=== PATIENT | male | born 1960 | race Caucasian/White ===

== ENCOUNTER → 2017-04-04 17:45 | Outpatient (REF) | payer BC, SELFPAY ==
[2017-04-04 18:52] LABS: Prostate Specific Ag, Diagnost 2.61 ng/mL (0.0-4.0)
== END ==
LOC: LAB 17:45
PROVIDERS: Visit Provider Internal Medicine
DX: R39.12 Poor urinary stream (principal)
CPT/HCPCS: 84153

== ENCOUNTER → 2017-05-15 10:49 | Outpatient (CLI) | payer BC, SELFPAY | PROVIDERS: PCP Internal Medicine; Visit Provider Internal Medicine | DX: J11.1 Influenza due to unidentified influenza virus with other respiratory manifestations (principal) | CPT/HCPCS: 87275; 87276 ==

== ENCOUNTER → 2017-09-07 15:24 | Outpatient (CLI) | payer BC, SELFPAY ==
--- NOTE | 2017-09-07 15:30 | XR_ITS ---
XR knee RT 3V Ordering Physician: Domingo Griffiths Patient Age: 56 years: Male HISTORY: ITS.REASON: RT KNEE PAIN Right knee pain no trauma TECHNIQUE: 3 view right knee COMPARISON :08/05/2016 right knee FINDINGS . No fracture. No new findings No definite effusion at suprapatellar bursa. Bones well mineralized. Borderline joint space narrowing particularly at medial compartment on this nonweightbearing film. IMPRESSION: No acute findings right knee.. No significant change since prior study. Only Question Borderline narrowing of the joint space particularly at medial compartment on this nonweightbearing film. This may reflect some early degenerative changes.
== END ==
PROVIDERS: PCP Internal Medicine; Visit Provider Internal Medicine
DX: M25.561 Pain in right knee (principal)
CPT/HCPCS: 73562

== ENCOUNTER 2017-10-17 17:00 | Outpatient (RCR) | payer BC, SELFPAY | END 2017-10-17 17:01 | disposition home or self-care (01) | LOC: PT 17:00 | PROVIDERS: Family Provider Internal Medicine; PCP Internal Medicine; Visit Provider Orthopaedic Surgery | DX: M17.11 Unilateral primary osteoarthritis, right knee (principal) | CPT/HCPCS: 97033; 97110; 97140; 97163 ==

== ENCOUNTER → 2019-04-19 09:25 | Outpatient (CLI) | payer BC, SELFPAY ==
[2019-04-19 09:48] LABS: Basophils # 0.1 K/mm3 (0-0.2); Basophils % 1.1 % (0.1-2.0); Eosinophils # 0.4 K/mm3 (0.0-0.4); Eosinophils % 4.3 % (0.1-12.0); Hematocrit 47.1 % (42.0-52.0); Lymphocytes # 2.6 K/mm3 (0.7-4.5); Lymphocytes % 27.4 % (10-50); Mean Corpuscular Hemoglobin 32.3 pg (27.0-31.2); Mean Corpuscular Volume 95.2 fl (80-94); Mean Platelet Volume 7.5 fl (7.4-10.4); Monocytes # 0.6 K/mm3 (0.1-1.0); Monocytes % 6.5 % (1.7-9.3); Neutrophils # 5.7 K/mm3 (1.8-7.8); Neutrophils % 60.7 % (37.0-80.0); Platelet Count 291 K/mm3 (142-424); Red Blood Count 4.95 M/mm3 (4.60-6.20); Red Cell Distribution Width 12.4 % (11.5-17.5); White Blood Count 9.3 K/mm3 (4.8-10.8)
[2019-04-19 11:52] LABS: Alanine Aminotransferase 32 U/L (12-78); Albumin Level 3.9 gm/dL (3.4-5.0); Albumin/Globulin Ratio 1.4 (1.1-1.8); Alkaline Phosphatase 69 U/L (46-116); Anion Gap 13.5 mEq/L (5-15); Aspartate Amino Transferase 13 U/L (15-37); Bilirubin,Total 0.5 mg/dL (0.2-1.0); Blood Urea Nitrogen 15 mg/dL (7-18); Carbon Dioxide 27 mmol/L (21.0-32.0); Chloride 103 mmol/L (98-107); Chol/HDL Ratio 3.4 (1-3.5); Cholesterol 131 mg/dL (140-200); Creatinine,Serum 1.12 mg/dL (0.70-1.30); Estimated Glomerular Filt Rate 68 ml/min (>60); GFR (African American) 82 ML/MIN (>60); Globulin 2.8 gm/dl (1.3-3.2); Glucose 87 mg/dL (74-106); HDL Cholesterol 38 mg/dL (27-67); LDL Cholesterol 79 mg/dL (0-130); Potassium 4.5 mmoL/L (3.5-5.1); Sodium 139 mmol/L (136-145); Total Protein,Serum 6.7 gm/dL (6.4-8.2); Triglycerides 69 mg/dL (30-200); VLDL Cholesterol 14 mg/dL (0-40)
== END ==
PROVIDERS: Visit Provider Internal Medicine
DX: I10 Essential (primary) hypertension (principal); E78.5 Hyperlipidemia, unspecified; N40.0 Benign prostatic hyperplasia without lower urinary tract symptoms; M17.0 Bilateral primary osteoarthritis of knee
CPT/HCPCS: 36415; 80053; 80061; 84153; 85025

== ENCOUNTER → 2019-05-05 07:58 | Outpatient (POV) | payer BC, SELFPAY | PROVIDERS: Visit Provider Specialist | DX: R20.0 Anesthesia of skin (principal); R20.2 Paresthesia of skin; M79.642 Pain in left hand; M79.641 Pain in right hand | CPT/HCPCS: 95886; 95910 ==

== ENCOUNTER → 2019-05-28 16:34 | Outpatient (CLI) | payer BC, SELFPAY ==
--- NOTE | 2019-05-28 16:41 | XR_ITS ---
PROCEDURE: XR WRIST LT MIN 3V CLINICAL INDICATION: left wrist pain/ CTS COMPARISON: No exams were available for comparison FINDINGS: No fracture, dislocation, lytic change, or blastic change evident. No significant degenerative change IMPRESSION: Negative left wrist Dictated by: Aren Robledo MD 05/28/2019 17:04 Electronically signed by Aren Robledo MD in [place] 05/28/2019 17:04
--- NOTE | 2019-05-28 16:41 | XR_ITS ---
PROCEDURE: XR WRIST RT MIN 3V CLINICAL INDICATION: RT wrist pain/ CTS COMPARISON: No exams were available for comparison FINDINGS: No fracture, dislocation, lytic change, or blastic change evident. No significant degenerative change IMPRESSION: Negative right wrist Dictated by: Aren Robledo MD 05/28/2019 17:03 Electronically signed by Aren Robledo MD in [place] 05/28/2019 17:03
--- NOTE | 2019-05-28 16:42 | XR_ITS ---
PROCEDURE: XR CHEST 2V CLINICAL HISTORY: HTN COMPARISON: CXR CHEST(2 VIEWS-NOT PORTABLE) from 10/05/2014 FINDINGS: There are low lung volumes. Unremarkable cardiovascular structures with clear lungs. The lungs are clear without infiltrates, suspicious nodules, or pleural effusions. No acute bony abnormalities. IMPRESSION: No acute findings. Dictated by: Aren Robledo MD 05/28/2019 17:01 Electronically signed by Aren Robledo MD in [place] 05/28/2019 17:01
== END ==
PROVIDERS: PCP Internal Medicine; Visit Provider Orthopaedic Surgery
DX: G56.02 Carpal tunnel syndrome, left upper limb (principal); G56.01 Carpal tunnel syndrome, right upper limb
CPT/HCPCS: 71046; 73110

== ENCOUNTER 2019-06-02 16:00 | Outpatient (RCR) | payer BC, SELFPAY ==
--- NOTE | 2019-05-19 16:33 | HMH.PTOPEV ---
PT Outpatient Evaluation Rehab PT Outpatient Evaluation Start: 05/19/19 15:42 Freq: Status: Active Protocol: Document 05/19/19 15:43 GERMANIALEILANI (Rec: 05/19/19 16:33 GARRET [id number]) Electronically Signed By Justin Leon, CHELY 05/19/19 15:43 Outpatient Therapy Subjective History Subjective History This is the initial Physical Therapy evaluation for Jules Dotson. Pt is a 58 y/o male referred to PT for c/o B hand L>R numbness. Pt reports weakness and numbness in B hands, no sig c/o pain. Pt reports this has been going on for years but substantial increased around March. Pt states that in March they went through shut down and had increased workload. Chief Complaint Paresthesia,Weakness Symptom Type Numbness,Tingling Symptoms Relieved By Shaking Symptoms Aggravated By Physical Activity Prior Functional Limitations None Symptom Description Intermittent Wrist/Hand Eval Flexibility Deficits Wrist Extensors Muscle Length (R) Mild Tightness,(L) Mild Tightness Wrist Flexors Muscle Length (R) Mild Tightness,(L) Mild Tightness Supinator Muscle Length (R) Mild Tightness,(L) Mild Tightness Wrist Range of Motion Right Wrist Limitations of Range of Motion Soft Tissue Tightness Wrist Extension Active Range of Motion ( 50 degrees) Wrist Flexion Active Range of Motion ( 80 degrees) Left Wrist Limitations of Range of Motion Soft Tissue Tightness Wrist Extension Active Range of Motion ( 60 degrees) Wrist Flexion Active Range of Motion ( 80 degrees) Duplication Specialist/Pinch Strength Left Duplication Specialist Strength Measurement (lbs) 100 Right Duplication Specialist Strength Measurement (lbs) 100 Outpatient Therapy Assessment Impairments Problems/Impairmments Impaired Range of Motion, Impaired Strength,Impaired Lifting,Impaired Work Activities,Impaired Self Care/ Self Management Prognosis Rehab Potential Fair Clinical Impression Consistent with Diagnosis Yes Short Term Goals Number of Weeks 2 Increase Range of Motion Yes: +5 BUE wrist Increase Strength Yes: 105 monorail helper #2 Restore Ability to Lift Objects to Yes Shoulder Level
== END 2019-06-02 16:45 | disposition home or self-care (01) ==
LOC: PT 16:00
PROVIDERS: PCP Internal Medicine; Visit Provider Specialist
DX: G56.03 Carpal tunnel syndrome, bilateral upper limbs (principal)
CPT/HCPCS: 97033; 97035; 97110; 97163

== ENCOUNTER → 2019-09-24 15:22 | Outpatient (CLI) | payer BC, SELFPAY ==
--- NOTE | 2019-09-24 15:41 | ECG_ITS ---
APPROVED REPORT Exam: Resting ECG HR:73 bpm ECG Measurements Heart Rate 73 AXES VT 174 P 18 QRSd 88 QRS 61 QT 380 T 36 QTc 418 <Conclusion> Normal sinus rhythm Normal ECG Electronically signed by : Domingo Griffiths, 09/24/2019 17:47:59
[2019-09-24 16:17] LABS: Basophils # 0.1 K/mm3 (0-0.2); Basophils % 0.9 % (0.1-2.0); Eosinophils # 0.3 K/mm3 (0.0-0.4); Eosinophils % 3.4 % (0.1-12.0); Hematocrit 43.9 % (42.0-52.0); Hemoglobin 15.7 g/dL (14.1-18.0); Lymphocytes # 2.8 K/mm3 (0.7-4.5); Lymphocytes % 27.8 % (10-50); Mean Corpuscular HGB Conc 35.8 g/dL (31.8-35.4); Mean Corpuscular Hemoglobin 33.6 pg (27.0-31.2); Mean Corpuscular Volume 93.9 fl (80-94); Mean Platelet Volume 7.4 fl (7.4-10.4); Monocytes # 0.6 K/mm3 (0.1-1.0); Monocytes % 5.9 % (1.7-9.3); Neutrophils # 6.3 K/mm3 (1.8-7.8); Platelet Count 237 K/mm3 (142-424); Red Blood Count 4.68 M/mm3 (4.60-6.20); Red Cell Distribution Width 12.7 % (11.5-17.5); White Blood Count 10.1 K/mm3 (4.8-10.8)
[2019-09-24 17:10] LABS: Chloride 102 mmol/L (98-107); Sodium 135 mmol/L (136-145)
[2019-09-24 17:13] LABS: Alanine Aminotransferase 34 U/L (12-78); Albumin Level 4.3 g/dl (3.5-5.0); Albumin/Globulin Ratio 1.7 (1.1-1.8); Alkaline Phosphatase 58 U/L (38-126); Aspartate Amino Transferase 29 U/L (17-59); Bilirubin,Total 0.5 mg/dl (0.2-1.3); Blood Urea Nitrogen 16 mg/dl (9-20); Calcium 8.8 mg/dl (8.4-10.2); Carbon Dioxide 30 mmol/L (22.0-30.0); Estimated Glomerular Filt Rate 87 ml/min (>60); GFR (African American) 106 ML/MIN (>60); Globulin 2.6 g/dL (1.3-3.2); Glucose 112 mg/dl (74-100); Total Protein,Serum 6.9 g/dl (6.3-8.2)
[2019-09-24 19:33] LABS: Coronavirus 19 IgG Antibody Negative (Negative); Coronavirus 19 IgM Antibody Negative (Negative)
== END ==
PROVIDERS: Visit Provider Orthopaedic Surgery
DX: Z01.818 Encounter for other preprocedural examination (principal); G56.01 Carpal tunnel syndrome, right upper limb
CPT/HCPCS: 36415; 80053; 85025; 86328; 93005

== ENCOUNTER 2019-09-26 11:24 | Day surgery (SDC) | payer BC, SELFPAY ==
[2019-09-24 11:52] VITALS: BMI 36.2
[2019-09-24 13:24] VITALS: BMI 36.2
[2019-09-26 11:47] VITALS: BP 121/76; PULSE 74; RESP 18; TEMP 36.5; O2SAT 99
--- NOTE | 2019-09-26 12:37 | HMH.ANESCL ---
[facility] Anesthesia Checklist - Patient Identification Patient Identification: Arm Band, Verbal (Name & ) - Structural Data Admitted From: Home Planned Operative Procedure/s: Left CTR Consent for Planned Operative Procedure(s) Verified: Yes Verified Documents: Surgical Consent, History and Physical - NPO Status Verified Time NPO: 00:00 - Chart Verification Results Verified: CBC, BMP - Additional verifications Anesthesia Reactions: Yes (PONV) Hx Blood Transfusions: No Blood Transfusion Reaction: No - Airway Assessment C-Spine Mobility Assessed: Yes (MP 3, TMD3, full fox, thick neck) TMJ Mobility Assessed: Yes Dentition: Good Dentition - Neurological Assessment Level of Consciousness: Awake, Alert, Appropriate, Follows Commands Hx Seizures: No Numbness or tingling in extremities: No - Anesthesia Plan Anesthesia Risk discussed: Yes Anesthesia Plan: Verified ASA Class: II Anesthesia Type: MAC w/Block [facility] History I have reviewed the patient's past medical history: Yes Medical History: Reports:: Hyperlipidemia, Hypertension Denies:: Cancer, Diabetes Mellitus Type 1, Diabetes Mellitus Type 2, Internal Pacemaker, MRSA, Seizures *Have you ever received a pneumonia vaccine?: No *Have you received a flu vaccine this season?: Yes Other Medical History: Denies: Blood Transfusion Reaction Comment:: obesity Anesthesia experience/problems:: PONV Other Surgeries: Yes: Colonoscopy, Hernia Repair. No: Pacemaker Amputation: No Fractures: No - *Social History Educational Level: Completed College Smoking Status: Never smoker Alcohol Intake: current Alcohol Intake Frequency:: a few times a week Substance Use Type: denies use *Occupational Status:: employed Housing: house Household Members: spouse *Travel in the last 8 weeks: None Family Hx:: Hypertension, Stroke
[2019-09-26 13:27] VITALS: TEMP 43
[2019-09-26 14:00] VITALS: BP 99/57; PULSE 86; RESP 18; TEMP 36.6; O2SAT 92
[2019-09-26 14:15] VITALS: BP 93/55; PULSE 75; RESP 18; TEMP 36.6; O2SAT 94
[2019-09-26 14:30] VITALS: BP 85/51; PULSE 75; RESP 18; TEMP 36.6; O2SAT 95
[2019-09-26 14:50] VITALS: BP 97/56; PULSE 67; RESP 18; TEMP 36.6; O2SAT 96
--- NOTE | 2019-09-26 16:15 | HMH.OPNOTE ---
Date of procedure: 09/26/19 Pre-op Diagnosis:: Carpal tunnel syndrome, left Post-op Diagnosis:: Same Procedure performed:: Open carpal tunnel release, left Surgeon:: Tate Conway MD OUTSOLE MOLDER:: Federico Oliveira Anesthesia: local, none (IV sedation) Estimated blood loss (mL): 2 Clinical Note:: Patient is 58-year-old male with bilateral carpal tunnel syndrome with long-standing symptoms. Previously EMG/NCV results confirmed carpal tunnel syndrome on both sides and and his symptoms are worse on the left side. Patient is having significant and disabling symptoms on the left side and has failed to respond adequately to conservative management. Therefore, the carpal tunnel release surgery is necessary to relieve symptoms, preserve the remaining fibers of the median nerve, improve function and decrease the pain, paresthesias and weakness and to prevent permanent nerve damage. Please refer to my office note for full details. Operative findings:: The intraoperative findings showed the median nerve to be very tightly compressed and hyperemic. The flexor retinaculum was noted to be thick and tight. There was mild synovitis in the carpal tunnel. There was no evidence of any space-occupying lesions within the carpal tunnel. Operative note:: On the day of the surgery the patient was met in the preoperative area. Patient was positively identified and the operative site was marked and initialed by me. A physical examination was performed and the chart was updated. I again discussed the procedure, risks and benefits and alternatives with the patient. The complications discussed include but are not limited to- bleeding, injury to nerves, blood vessels and tendons, infection, wound dehiscence, incomplete relief/continued pain, persistent numbness, palmar hypersensitivity, pillar pain, DVT/PE, complex regional pain syndrome(CRPS), worsening of nerve damage, failure of the condition to improve, incomplete return of function, bowstringing of tendons, weakness of regional maintenance manager strength, recurrence, failure of the surgery to accomplish the desired goals, decreased use of the hand, loss of use of the arm, loss of the hand or arm, loss of life. Likely need for further surgery in the future has been discussed. I've indicated to the patient where the proposed incision would be made and also discussed the possibility of extending the incision if needed to accomplish an effective release. We have discussed how the goal of surgery is to protect the fibers which have remained healthy and hopefully reverse the symptoms of the fibers which are compromised but still recoverable. We have explained that, fibers that are permanently damaged will not recover. Patient asked appropriate questions and all have been answered by me. Patient wished to proceed with the surgery. Patient understood the risks, agreed to proceed with surgery, signed the consent form and no guarantees or assurances were given or implied. The patient was brought to the operating room and placed supine on the operating table. The left upper extremity was placed over a side table. All the bony prominences were well-padded. IV sedation was administered by the criminal legal assistant. The left upper extremity was prepped and draped in the usual sterile fashion. A preprocedure timeout was performed as per hospital policy. The skin incision was marked using the Pulido's landmarks, just ulnar to the thenar crease. 10 cc of 0.5% Marcaine was administered into the soft tissues along the line of the proposed incision for local anesthesia. The limb was exsanguinated with the Esmarch bandage and tourniquet was inflated to 250 mmHg. Please see nursing records for the total tourniquet time. Pulido's landmarks were utilized and a skin incision was made parallel and just ulnar to the thenar crease with a 15 blade. Blunt tissue dissection was carried through the subcutaneous tissue down to the palmar fascia. The palmar fascia was incised with the knife to reveal the
== END 2019-09-26 14:50 | disposition home or self-care (01) ==
LOC: OR 11:29
PROVIDERS: PCP Internal Medicine; Visit Provider Orthopaedic Surgery
PROC: (CPT 64721; principal; 2019-09-26 12:45)
DX: G56.02 Carpal tunnel syndrome, left upper limb (principal)
CPT/HCPCS: 64721; 96374

== ENCOUNTER → 2022-01-27 11:59 | Outpatient (CLI) | payer BC, SELFPAY ==
[2022-01-27 15:07] LABS: Basophils # 0.1 K/mm3 (0-0.2); Basophils % 1.2 % (0.1-2.0); Eosinophils # 0.3 K/mm3 (0.0-0.4); Eosinophils % 3.2 % (0.1-12.0); Hematocrit 46.5 % (42.0-52.0); Hemoglobin 15.5 g/dL (14.1-18.0); Lymphocytes # 2.8 K/mm3 (0.7-4.5); Lymphocytes % 28.3 % (10-50); Mean Corpuscular HGB Conc 33.4 g/dL (31.8-35.4); Mean Corpuscular Hemoglobin 32.8 pg (27.0-31.2); Mean Corpuscular Volume 98.3 fl (80-94); Mean Platelet Volume 8.2 fl (7.4-10.4); Monocytes # 0.7 K/mm3 (0.1-1.0); Neutrophils % 60.2 % (37.0-80.0); Platelet Count 308 K/mm3 (142-424); Red Blood Count 4.73 M/mm3 (4.60-6.20); Red Cell Distribution Width 12.7 % (11.5-17.5); White Blood Count 9.9 K/mm3 (4.8-10.8)
[2022-01-27 15:28] LABS: Alanine Aminotransferase 38 U/L (12-78); Albumin Level 4.1 g/dl (3.5-5.0); Albumin/Globulin Ratio 1.8 (1.1-1.8); Alkaline Phosphatase 86 U/L (38-126); Anion Gap 14.2 mEq/L (5-15); Aspartate Amino Transferase 35 U/L (17-59); Bilirubin,Total 0.5 mg/dl (0.2-1.3); Blood Urea Nitrogen 10 mg/dl (9-20); Calcium 8.8 mg/dl (8.4-10.2); Carbon Dioxide 29 mmol/L (22.0-30.0); Chloride 99 mmol/L (98-107); Estimated Glomerular Filt Rate 86 ml/min (>60); GFR (African American) 105 ML/MIN (>60); Globulin 2.3 g/dL (1.3-3.2); Glucose 73 mg/dl (74-100); Potassium 4.2 mmoL/L (3.5-5.1); Sodium 138 mmol/L (136-145); Total Protein,Serum 6.4 g/dl (6.3-8.2)
== END ==
PROVIDERS: PCP Internal Medicine; Visit Provider Orthopaedic Surgery
DX: Z01.812 Encounter for preprocedural laboratory examination (principal); G56.01 Carpal tunnel syndrome, right upper limb
CPT/HCPCS: 36415; 80053; 85025

== ENCOUNTER 2022-01-30 07:04 | Day surgery (SDC) | payer BC, SELFPAY ==
--- NOTE | 2022-01-26 13:21 | SUR.PREOP ---
Patient notified of time change and agreed to come in at 7am
[2022-01-27 11:36] VITALS: BMI 36.6
[2022-01-30 07:31] VITALS: BP 126/73; PULSE 71; RESP 20; TEMP 36.4; O2SAT 96
--- NOTE | 2022-01-30 08:02 | P.PN_ITS ---
PFSH PFS Medical History Benign prostatic hyperplasia Hyperlipidemia Hypertension Surgical History Hx of umbilical hernia repair Family History Other Family history of stroke Social History Smoking Status: Never smoker second hand exposure: No alcohol intake: current substance use type: denies use current occupational status: employed Travel in the last 8 weeks: None household members: spouse housing: house current occupational exposures/hazards: No caffeine: No special leigh ann needs: No agree to transfusion: No do you feel safe at home: Yes victim of physical abuse: No victim of emotional abuse: No victim of sexual abuse: No would you like helpful sources: No [facility] Anesthesia Checklist Patient Identification Patient Identification: Arm Band Structural Data Admitted From: Home Planned Operative Procedure/s: Right Carpal Tunnel Release Consent for Planned Operative Procedure(s) Verified: Yes Verified Documents: Surgical Consent and History and Physical NPO Status Verified Time NPO: 00:00 Additional verifications Anesthesia Reactions: Yes (PONV) Hx Blood Transfusions: No Blood Transfusion Reaction: No Airway Assessment C-Spine Mobility Assessed: Yes TMJ Mobility Assessed: Yes Dentition: Good Dentition Neurological Assessment Level of Consciousness: Awake and Alert Anesthesia Plan Anesthesia Risk discussed: Yes Anesthesia Plan: Verified ASA Class: II Anesthesia Type: MAC
--- NOTE | 2022-01-30 10:21 | P.OP_ITS ---
Date of procedure: 01/30/22 Pre-op Diagnosis:: Right carpal tunnel syndrome Post-op Diagnosis:: Same Procedure performed:: Right endoscopic carpal tunnel release Surgeon:: Rafael Lemus DO TIMBER GRADER:: Jj Bejarano Anesthesia: GETA Estimated blood loss (mL): 0 Operative findings:: See dictation Operative note:: Patient was identified preoperatively. Right arm marked with a yes and my initials. Transported operative suite. Placed upon operating bed. General anesthesia ministered. Right upper extremity prepped and draped in normal sterile fashion. Once prepped and draped final operative timeout performed to identify proper patient procedure and extremity. Everyone involved in the case agreed. No counter indications to beginning. Did receive preoperative antibiotics. Marking pen was used to make plan incision over the volar wrist crease. Esmarch was used to exsanguinate extremity pneumatic tourniquet inflated to 250 mmHg. Skin knife was used to incise the skin. Careful dissection was taken down with scissors to identify the most proximal aspect of the transverse carpal ligament. The dilator through the [email or web address] endoscopic carpal tunnel set was utilized. This was followed with the 4.0 mm cannula that was placed on the carpal tunnel. Camera was then placed through the cannula. Most distal aspect of the transverse carpal ligament identified and probed. Rasp was used to remove synovium from the transverse carpal ligament. The curved knife was then was used to cut the transverse carpal ligament. This was visualized directly. Once transection of the transverse carpal ligament was complete camera was placed to verify full release. Camera was removed. Copious irrigation of the wound performed. Skin closed with 3-0 nylon stitch. Local anesthesia infiltrated with a mix of Marcaine and lidocaine. Sterile hand dressing placed. Patient waken anesthesia taken recovery in stable condition. Condition: stable Disposition: PACU Complications:: None apparent
[2022-01-30 10:28] VITALS: BP 117/65; PULSE 76; RESP 18; TEMP 36.4; O2SAT 92
[2022-01-30 10:38] VITALS: BP 111/59; PULSE 76; RESP 18; O2SAT 94
[2022-01-30 11:05] VITALS: BP 110/67; PULSE 72; RESP 18; O2SAT 95
[2022-01-30 11:10] VITALS: BP 112/63; PULSE 71; RESP 18; O2SAT 96
== END 2022-01-30 11:08 | disposition home or self-care (01) ==
PROVIDERS: PCP Internal Medicine; Visit Provider Orthopaedic Surgery
PROC: (CPT 64721; principal; 2022-01-30 08:45)
DX: G56.01 Carpal tunnel syndrome, right upper limb (principal)
CPT/HCPCS: 64721; 96374; J2405; J2704

== ENCOUNTER → 2022-03-13 12:29 | Outpatient (CLI) | payer BC, SELFPAY ==
[2022-03-13 14:52] LABS: Alanine Aminotransferase 44 U/L (12-78); Albumin Level 4.5 g/dl (3.5-5.0); Alkaline Phosphatase 76 U/L (38-126); Anion Gap 15.4 mEq/L (5-15); Aspartate Amino Transferase 36 U/L (17-59); Bilirubin,Total 0.7 mg/dl (0.2-1.3); Blood Urea Nitrogen 14 mg/dl (9-20); Calcium 9.5 mg/dl (8.4-10.2); Carbon Dioxide 26 mmol/L (22.0-30.0); Chloride 102 mmol/L (98-107); Cholesterol 135 mg/dl (140-200); Estimated Glomerular Filt Rate 86 ml/min (>60); GFR (African American) 105 ML/MIN (>60); Globulin 2.3 g/dL (1.3-3.2); Glucose 104 mg/dl (74-100); HDL Cholesterol 34 mg/dl (40-60); Potassium 4.4 mmoL/L (3.5-5.1); Sodium 139 mmol/L (136-145); Total Protein,Serum 6.8 g/dl (6.3-8.2); Triglycerides 179 mg/dl (30-150); VLDL Cholesterol 36 mg/dL (0-40)
[2022-03-13 15:02] LABS: Direct LDL Cholesterol 74.69 mg/dL (100-129)
[2022-03-13 15:19] LABS: Prostate Specific Ag Screen 3.1 ng/ml (0.0-4.0)
== END ==
PROVIDERS: PCP Internal Medicine; Visit Provider Internal Medicine
DX: I10 Essential (primary) hypertension (principal); E78.5 Hyperlipidemia, unspecified; N40.1 Benign prostatic hyperplasia with lower urinary tract symptoms; Z12.5 Encounter for screening for malignant neoplasm of prostate
CPT/HCPCS: 80053; 80061; G0103

== ENCOUNTER 2023-07-17 10:47 | Outpatient (CLI) | payer BC, SELFPAY ==
--- NOTE | 2023-07-17 10:50 | XR_ITS ---
FINAL REPORT CLINICAL HISTORY: RT SHOULDER INJURY 11/22,CHRONIC PAIN COMPARISON: None FINDINGS: 2 views of the right shoulder were obtained. There is no prior exam for comparison. There is no fracture or dislocation. There is mild heterotrophic change of the acromioclavicular joint. Soft tissues are normal. IMPRESSION: No acute osseous abnormality of the right shoulder. Mild heterotrophic change of the acromioclavicular joint. Reviewed, Interpreted and Dictated by Jarrett Velazquez MD Transcribed by María Randall Authenticated and [facility]
== END 2023-07-17 23:59 ==
LOC: RAD 10:48
PROVIDERS: PCP Internal Medicine; Visit Provider Internal Medicine
DX: M25.511 Pain in right shoulder (principal); S40.912A Unspecified superficial injury of left shoulder, initial encounter; G89.29 Other chronic pain
CPT/HCPCS: 73030

== ENCOUNTER 2023-07-17 14:11 | Outpatient (CLI) | payer BC, SELFPAY ==
[2023-07-17 15:05] LABS: Basophils # 0.1 K/mm3 (0-0.2); Basophils % 0.9 % (0.1-2.0); Eosinophils # 0.4 K/mm3 (0.0-0.4); Eosinophils % 4.7 % (0.1-12.0); Hematocrit 48.1 % (42.0-52.0); Hemoglobin 16.1 g/dL (14.1-18.0); Lymphocytes # 2.5 K/mm3 (0.7-4.5); Lymphocytes % 27.6 % (10-50); Mean Corpuscular HGB Conc 33.5 g/dL (31.8-35.4); Mean Corpuscular Hemoglobin 33.6 pg (27.0-31.2); Mean Corpuscular Volume 100.5 fl (80-94); Mean Platelet Volume 9.1 fl (7.4-10.4); Monocytes # 0.6 K/mm3 (0.1-1.0); Monocytes % 6.2 % (1.7-9.3); Neutrophils # 5.5 K/mm3 (1.8-7.8); Neutrophils % 60.7 % (37.0-80.0); Platelet Count 243 K/mm3 (142-424); Red Blood Count 4.79 M/mm3 (4.60-6.20); Red Cell Distribution Width 12.7 % (11.5-17.5); White Blood Count 9.1 K/mm3 (4.8-10.8)
[2023-07-17 15:23] LABS: Alanine Aminotransferase 46 U/L (12-78); Albumin Level 4.5 g/dl (3.5-5.0); Albumin/Globulin Ratio 1.9 (1.1-1.8); Alkaline Phosphatase 67 U/L (38-126); Anion Gap 15.3 mEq/L (5-15); Aspartate Amino Transferase 40 U/L (17-59); Bilirubin,Total 0.9 mg/dl (0.2-1.3); Blood Urea Nitrogen 13 mg/dl (9-20); Calcium 9.5 mg/dl (8.4-10.2); Carbon Dioxide 23 mmol/L (22.0-30.0); Chloride 106 mmol/L (98-107); Chol/HDL Ratio 3.4 (1-3.5); Cholesterol 161 mg/dl (140-200); Estimated Glomerular Filt Rate 99 ml/min (>60); GFR (African American) 119 ML/MIN (>60); Globulin 2.4 g/dL (1.3-3.2); Glucose 79 mg/dl (74-100); HDL Cholesterol 48 mg/dl (40-60); Potassium 4.3 mmoL/L (3.5-5.1); Sodium 140 mmol/L (136-145); Total Protein,Serum 6.9 g/dl (6.3-8.2); Triglycerides 156 mg/dl (30-150); VLDL Cholesterol 31 mg/dL (0-40)
[2023-07-17 15:53] LABS: Prostate Specific Ag Screen 3.2 ng/ml (0.0-4.0)
[2023-07-20 15:48] LABS: Vitamin B12 418 pg/mL (239-931)
== END 2023-07-17 23:59 | disposition home or self-care (01) ==
LOC: LAB.DROPOF 14:11
PROVIDERS: PCP Internal Medicine; Visit Provider Internal Medicine
DX: I10 Essential (primary) hypertension (principal); E78.5 Hyperlipidemia, unspecified; M17.0 Bilateral primary osteoarthritis of knee; G47.33 Obstructive sleep apnea (adult) (pediatric); N40.1 Benign prostatic hyperplasia with lower urinary tract symptoms; Z12.5 Encounter for screening for malignant neoplasm of prostate
CPT/HCPCS: 80053; 80061; 82607; 85025; G0103

== ENCOUNTER 2023-11-16 10:05 | Outpatient (CLI) | payer BC, SELFPAY ==
--- NOTE | 2023-11-16 10:20 | XR_ITS ---
FINAL REPORT CLINICAL HISTORY: PRE OP, PRE DIABETIC, shortness of breath COMPARISON: 05/28/2019 FINDINGS: Two views of the chest were obtained. The heart size and pulmonary vascularity are within normal limits. The mediastinum is normal. There is mild atelectasis noted in the right lung. There is no pneumothorax. The bony thorax is intact. IMPRESSION: Mild right lung atelectasis. Reviewed, Interpreted and Dictated by Federico Hartley III, MD Transcribed by Dyan Reyes Authenticated and [facility]
--- NOTE | 2023-11-16 10:32 | ECG_ITS ---
APPROVED REPORT Exam: Resting ECG HR:60 bpm ECG Measurements Heart Rate 60 AXES ME 185 P 17 QRSd 76 QRS 92 QT 410 T 23 QTc 411 Conclusion SINUS RHYTHM BORDERLINE RIGHT AXIS DEVIATION [QRS AXIS > 90] LOW QRS VOLTAGE IN PRECORDIAL LEADS [QRS DEFLECTION < 1.0 mV IN CHEST LEADS] BORDERLINE ECG UNCONFIRMED REPORT Electronically signed by : Severiano Rebollar MD 11/16/2023 16:00:18
[2023-11-16 10:41] LABS: Basophils # 0.1 K/mm3 (0-0.2); Basophils % 1.1 % (0.1-2.0); Eosinophils # 0.3 K/mm3 (0.0-0.4); Eosinophils % 3.5 % (0.1-12.0); Hemoglobin 15.7 g/dL (14.1-18.0); Lymphocytes # 2.6 K/mm3 (0.7-4.5); Lymphocytes % 28.5 % (10-50); Mean Corpuscular HGB Conc 32.8 g/dL (31.8-35.4); Mean Corpuscular Hemoglobin 33.4 pg (27.0-31.2); Mean Corpuscular Volume 101.9 fl (80-94); Mean Platelet Volume 8.1 fl (7.4-10.4); Monocytes # 0.5 K/mm3 (0.1-1.0); Monocytes % 5.9 % (1.7-9.3); Neutrophils # 5.5 K/mm3 (1.8-7.8); Platelet Count 239 K/mm3 (142-424); Red Blood Count 4.71 M/mm3 (4.60-6.20); Red Cell Distribution Width 12.9 % (11.5-17.5)
[2023-11-16 11:04] LABS: Anion Gap 9.3 mEq/L (5-15); Blood Urea Nitrogen 15 mg/dl (9-20); Calcium 9.1 mg/dl (8.4-10.2); Carbon Dioxide 28 mmol/L (22.0-30.0); Chloride 105 mmol/L (98-107); Estimated Glomerular Filt Rate 86 ml/min (>60); GFR (African American) 104 ML/MIN (>60); Glucose 95 mg/dl (74-100); Potassium 4.3 mmoL/L (3.5-5.1); Sodium 138 mmol/L (136-145)
[2023-11-16 12:04] LABS: Hemoglobin A1C 5.1 % (4.0-6.0)
== END 2023-11-16 23:59 | disposition home or self-care (01) ==
LOC: LAB 10:06
PROVIDERS: PCP Internal Medicine; Visit Provider Orthopaedic Surgery Sports Medicine
DX: Z01.818 Encounter for other preprocedural examination (principal); R73.09 Other abnormal glucose; Z87.898 Personal history of other specified conditions
CPT/HCPCS: 36415; 71046; 80048; 83036; 85025; 93005

== ENCOUNTER 2024-02-17 15:38 | Emergency (ER) | payer BC, SELFPAY ==
[2024-02-17 16:20] VITALS: BP 111/87; PULSE 72; RESP 18; TEMP 36.8; O2SAT 97; BMI 35.1
--- NOTE | 2024-02-17 16:31 | EXP.UTC ---
Discharge Plan Disposition Patient Disposition: Home, Self-Care Condition: Good Prescriptions Prescriptions: New prednisone 10 mg tablet 10 mg PO DIRECTED 9 Days Qty: 21 0RF Rx Instructions: Take 4 tablets daily for 3 days, then take 2 tablets daily for 3 days, then take 1 tablet daily for 3 days, then stop. triamcinolone acetonide 0.1 % cream 1 applic topical BID PRN (Reason: itching) 5 Days Qty: 15 0RF No Action Wegovy 0.25 mg/0.5 mL pen injector 0.25 mg SQ WEEKLY tamsulosin 0.4 mg capsule See Rx Instructions .ROUTE .COMPLEX Qty: 90 1RF Dose Instruction: TAKE 1 CAPSULE BY MOUTH EVERY DAY AT BEDTIME FOR URINATION Rx Instructions: TAKE 1 CAPSULE BY MOUTH EVERY DAY AT BEDTIME FOR URINATION albuterol sulfate 90 mcg/actuation HFA aerosol inhaler See Rx Instructions .ROUTE .COMPLEX Qty: 9 1RF Dose Instruction: INHALE 2 PUFFS BY MOUTH EVERY 6 HOURS NEEDED FOR SHORTNESS OF BREATH FOR WHEEZING Rx Instructions: INHALE 2 PUFFS BY MOUTH EVERY 6 HOURS NEEDED FOR SHORTNESS OF BREATH FOR WHEEZING trazodone 50 mg tablet See Rx Instructions .ROUTE .COMPLEX Qty: 90 1RF Dose Instruction: TAKE 1 TABLET BY MOUTH AT BEDTIME NEEDED FOR SLEEP Rx Instructions: TAKE 1 TABLET BY MOUTH AT BEDTIME NEEDED FOR SLEEP triamterene-hydrochlorothiazid 1 EACH capsule 1 each PO DAILY simvastatin 40 MG tablet 40 mg PO DAILY losartan 100 MG tablet 100 mg PO DAILY Referrals Follow up/Referrals: Domingo Griffiths MD [Primary Care Provider] - See instructions Activity Restrictions/Add. Instructions Additional Instructions/Restrictions: Try to identify and avoid contact with any offending substance that might have contributed to this. Don't start the oral steroids until tomorrow. Follow up with your regular doctor. GO TO THE ER FOR ANY WORSENING SYMPTOMS OR CONCERNS Clinical Impressions Clinical Impression: Periocular dermatitis Instructions Patient Instructions: Contact Dermatitis, Triamcinolone Topical, Prednisolone, Dexamethasone Injection Print Language Print Language: Norwegian Discharge ED Provider: Robbi Wright [facility] [place] Stated complaint: RT eye irritation Mode of Arrival: Ambulatory Source of Information: Patient Time Seen by Provider: 02/17/24 16:30 Description of Symptoms (Recalled from Triage Doc. by RN): RIGHT EYE IRRATION HEENT Symptoms (Recalled from RN notes): Yes Resp Symptoms (Recalled from RN notes): No Skin Symptoms (Recalled from RN notes): No MS Symptoms (Recalled from RN notes): No Functional Status (Recalled from RN notes): WNL Related Data Home Medications ?Medication ?Instructions ?Recorded ?Confirmed losartan 100 mg tablet 100 mg PO DAILY blood pressure 04/23/19 02/19/24 simvastatin 40 mg tablet 40 mg PO DAILY Cholesterol 04/23/19 02/19/24 triamterene 37.5 1 each PO DAILY blood pressure 04/23/19 02/19/24 mg-hydrochlorothiazide 25 mg capsule semaglutide (weight loss) 0.25 0.25 mg SQ WEEKLY 11/29/23 02/19/24 mg/0.5 mL subcutaneous pen injector (Frances) Previous Rx's ?Medication ?Instructions ?Recorded tamsulosin 0.4 mg capsule See Rx Instructions .Route 11/14/23 .COMPLEX #90 caps albuterol sulfate 90 mcg/actuation See Rx Instructions .Route 02/15/24 aerosol inhaler .COMPLEX #9 grams prednisone 10 mg tablet 10 mg PO DIRECTED 9 days #21 02/17/24 tabs triamcinolone acetonide 0.1 % 1 applic topical BID PRN itching 5 02/17/24 topical cream days #15 grams trazodone 50 mg tablet See Rx Instructions .Route 02/21/24 .COMPLEX #90 tabs Allergies Allergy/AdvReac Type Severity Reaction Status Date / Time oxycodone (OXYCODONE) Allergy Unknown NA-DIZZINES Verified 02/19/24 14:54 S Worker's Comp Is this a Worker's Comp case?: No [facility] Disclaimer: The information contained in this section may have been updated after the patient was seen, as this information can be updated by other users. Medical History Benign prostatic hyperplasia Hyperlipidemia Hypertension Surgical History Hx of umbilical hernia repair Family History Other Family history of stroke Social History Smoking Status: Never smoker second hand exposure: No alcohol intake: current alcohol intake frequency: a few times a week substance use type: denies use current occupational status: employed household members: spouse housing: house current occupational exposures/hazards: Yes caffeine: Yes special leigh ann needs: No agree to transfusion: No do you feel safe at home: Yes victim of physical abuse: No victim of emotional abuse: No victim of sexual abuse: No would you like helpful sources: No ROS Obtained: Yes All systems reviewed & no additional complaints except as documented Constitutional Constitutional: Denies chills and Denies fever(s) Eyes Eyes: Denies change in vision and Denies eye discharge ENT Ears, Nose, Mouth, and Throat: Denies dizziness, Denies otalgia and Denies sore throat Cardiovascular Cardiovascular: Denies chest pain Respiratory Respiratory: Denies shortness of breath, Denies chest congestion, Denies cough, Denies stridor and Denies wheezing Gastrointestinal Gastrointestingal: Denies nausea or vomiting Musculoskeletal Musculoskeletal: Reports system reviewed and no additional complaints, except as documented and Denies arthralgias Integumentary/Breasts Skin/Breast: Denies rash Neurologic Neurologic: Denies dizziness and Denies paresthesias Allergic/Immunologic Allergic/Immunologic: Denies wheezing Physical Exam General General appearance: alert and in no apparent distress Head Head exam: atraumatic, normocephalic and normal inspection Eye Eye exam: Present normal appearance, PERRL and EOMI; Absent conjunctival injection or discharge Expanded Eye Exam Eyelids: left: normal inspection and right: erythema Pupils: Left: size (2), Right: size (2) and Bilateral: regular, round and reactive Sclera/Conjunctival: bilateral: normal inspection ENT ENT exam: Present normal exam, normal oropharynx, mucous membranes moist, TM's normal bilaterally and normal external ear exam Neck Neck exam: Present normal inspection, full ROM and trachea midline; Absent meningismus or lymphadenopathy Chest Chest inspection: Present normal inspection and symmetric chest wall rise; Absent tenderness Respiratory Respiratory exam: Present normal lung sounds bilaterally; Absent respiratory distress Cardiovascular Cardiovascular exam: Present regular rate and normal rhythm; Absent JVD Abdominal Exam Abdominal exam: Present soft and normal bowel sounds; Absent distention, tenderness or guarding Extremities Exam Extremities exam: Present normal inspection, full ROM and normal capillary refill; Absent calf tenderness Back Exam Back exam: Present normal inspection; Absent tenderness Neurological Exam Neurological exam: Present alert and oriented X3 Psychiatric Psychiatric exam: Present normal affect and normal mood Skin Skin exam: Present warm, dry, intact and normal color Lymphatic Lymphatic Findings: no adenopathy Medical Decision Making Medical Records Screening: Per USPSTF and CDC recommendations, given the prevalence of disease in our region, it is our hospital?s policy to screen for HIV and viral Hepatitis for all patients aged 18 and over and those with ongoing risk factors. Mark Inquiry Pt receiving controlled substance: No Vital Signs: 02/17/24 16:20 Temperature 98.2 F Temperature Source Oral Pulse Rate [Left Radial] 72 Respiratory Rate 18 Blood Pressure [Left Arm] 111/87 Blood Pressure Mean [Left Arm] 95 02 Sat by Pulse Oximetry 97 Procedures Risk/Benefits of Procedure(s) Were Explained: Yes Eye Exam/FB Removal Location: eye (R) Topical anesthetic used: tetracaine Fluorescein Stick(s) used: Yes Time Out performed: Yes Procedure performed under: direct visualization with magnification Foreign body: other (none) Evidence of corneal penetration: No Technique: irrigation Eye irrigated w/saline (#ccs): 10 Patient tolerated procedure: well and no complications (He tolerated this well, no foreign body, corneal abrasion, or other abnormalities noted. )
[2024-02-17] MEDS: DEXAMETHASONE 4MG/ML 1ML VIAL 8 MG IM (17:44)
[2024-02-17] MEDS: EYE WASH IRRIGATION SOLN 118ML BOTTLE 120 ML OP (17:52)
[2024-02-17] MEDS: TETRACAINE 0.5% OPTH SOL 15ML 2 ML OP (17:52)
[2024-02-17] MEDS: FLUORESCEIN SODIUM 1MG STRIP 1 MG OP (17:52)
[2024-02-17 18:00] VITALS: BP 111/87; PULSE 72; RESP 18; TEMP 36.8
== END 2024-02-17 18:03 | disposition home or self-care (01) ==
PROVIDERS: Emergency Provider Nurse Practitioner Family; PCP Internal Medicine
DX: L71.0 Perioral dermatitis (principal)
CPT/HCPCS: 96372; 99213; G0381; J1100

== ENCOUNTER 2025-01-08 09:06 | Outpatient (CLI) | payer BC, SELFPAY ==
--- NOTE | 2025-01-08 09:13 | XR_ITS ---
FINAL REPORT CLINICAL HISTORY: SOA COMPARISON: Prior exam is not available for direct comparison. FINDINGS: PA and lateral views of the chest were obtained. The cardiac and mediastinal silhouettes are within normal limits. The lungs are clear. There is no pleural effusion or pneumothorax. No acute osseous abnormality is identified. IMPRESSION: No radiographic evidence of acute cardiac or pulmonary disease. Authenticated and ERN
--- NOTE | 2025-01-08 09:48 | ECG_ITS ---
APPROVED REPORT Exam: Resting ECG HR:68 bpm ECG Measurements Heart Rate 68 AXES WI 170 P 11 QRSd 89 QRS 64 QT 382 T 38 QTc 398 Conclusion SINUS RHYTHM NORMAL ECG UNCONFIRMED REPORT Electronically signed by : Severiano Rebollar MD 01/09/2025 08:30:49
[2025-01-08 09:52] LABS: Hematocrit 49.6 % (42.0-52.0); Hemoglobin 16.7 g/dL (14.1-18.0); Immature Granulocytes % 0.4 %; Mean Corpuscular HGB Conc 33.7 g/dL (31.8-35.4); Mean Corpuscular Hemoglobin 32.7 pg (27.0-31.2); Mean Corpuscular Volume 97.1 fl (80-94); Nucleated Red Blood Cells % 0 %; Platelet Count 272 K/mm3 (142-424); Red Blood Count 5.11 M/mm3 (4.60-6.20); Red Cell Distribution Width-SD 42.2 fL; White Blood Count 12.1 K/mm3 (4.8-10.8)
[2025-01-08 10:55] LABS: Anion Gap 14.5 mEq/L (5-15); Blood Urea Nitrogen 18 mg/dl (9-20); Calcium 9.7 mg/dl (8.4-10.2); Carbon Dioxide 31 mmol/L (22.0-30.0); Chloride 98 mmol/L (98-107); Creatinine,Serum 1.10 mg/dl (0.66-1.25); Estimated Glomerular Filt Rate 68 ml/min (>60); GFR (African American) 82 ML/MIN (>60); Glucose 89 mg/dl (74-100); Potassium 4.5 mmoL/L (3.5-5.1); Sodium 139 mmol/L (136-145)
[2025-01-08 11:42] LABS: Hemoglobin A1C 4.7 % (4.0-6.0)
== END 2025-01-08 23:59 | disposition home or self-care (01) ==
LOC: RAD 09:07
PROVIDERS: PCP Internal Medicine; Visit Provider Orthopaedic Surgery Sports Medicine
DX: Z01.810 Encounter for preprocedural cardiovascular examination (principal); Z01.811 Encounter for preprocedural respiratory examination; Z01.812 Encounter for preprocedural laboratory examination; R73.09 Other abnormal glucose; R06.02 Shortness of breath; Z87.898 Personal history of other specified conditions
CPT/HCPCS: 36415; 71046; 80048; 83036; 85025; 93005